=== PATIENT | female | born 1995 | race Caucasian/White ===

== ENCOUNTER 2025-06-21 18:14 | Emergency (ER) | payer MEDICARE, MEDICAID, SELFPAY ==
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
--- NOTE | 2025-06-21 18:45 | DI.RAD_ITS ---
Exam(s) XR FINGER RT RING EXAM: XR FINGER RT RING CLINICAL HISTORY: pain/limited rom. TECHNIQUE: 2D digital imaging was performed. Three views. COMPARISON: No exams were available for comparison FINDINGS: BONES: No acute fracture is present. No bony destructive lesion is seen. JOINTS: No dislocation present. SOFT TISSUE: Normal. IMPRESSION: No evidence of acute fracture, dislocation, or subluxation. The preliminary [facility] report was reviewed. DATA REPOSITORY: RADIATION DOSE DELIVERED:
[2025-06-21 18:48] VITALS: BP 112/71; PULSE 102; RESP 18; TEMP 36.7; O2SAT 99
--- NOTE | 2025-06-21 20:06 | DI.[facility]_ITS ---
PROCEDURE INFORMATION: Exam: XR Right Finger(s) Exam date and time: 06/21/2025 7:43 PM Age: 29 years old Clinical indication: Finger(s); Right; Pain, lrom TECHNIQUE: Imaging protocol: Radiologic exam of the right fingers. Views: Minimum 2 views. COMPARISON: No relevant prior studies available. FINDINGS: Bones/joints: No acute fracture or dislocation. No suspicious bony lesions. Soft tissues: Normal. No unexpected radiopaque foreign bodies. IMPRESSION: No acute findings. If pain persists, consider repeat imaging in 5-7 days to exclude occult fracture. Dictated and Authenticated by: Rossy Tobias MD. Orderin Shady Bermudez MD
== END 2025-06-21 20:41 | disposition home or self-care (01) ==
PROVIDERS: Emergency Provider Emergency Medicine; PCP Student in an Organized Health Care Education/Training Program
DX: S60.021A Contusion of right index finger without damage to nail, initial encounter (principal); M79.644 Pain in right finger(s); X58.XXXA Exposure to other specified factors, initial encounter
CPT/HCPCS: 99283 ×2; 29130; 73140

== ENCOUNTER 2025-08-20 13:33 | Outpatient (CLI) | payer MEDICARE, MEDICAID, SELFPAY ==
[2025-08-20 13:32] VITALS: BP 134/78; PULSE 101; RESP 20; TEMP 37.6; O2SAT 98
--- NOTE | 2025-08-20 13:41 | ED.GENADUL_ITS ---
Discharge Plan Disposition Patient Disposition: Admit to [facility] Condition: Serious Discharge Details Clinical Impression: Uterine contractions during Primary Care Provider: Gabriele Post ED Provider: Valeriano Daniels [facility] General Mode of arrival: EMS . Date/Time Provider Initiated Documentation: 08/20/25 13:37 . Limitations to Documentation: other (acuity of condition) . Information obtained by: patient . HPI Narrative: 29-year-old G3, P2 at 28 weeks here with active labor. Patient notes contractions every 2 to 3 minutes and thinks her water broke. Patient arrives by EMS. Related Data Allergies Allergy/AdvReac Type Severity Reaction Status Date / Time amoxicillin (From Augmentin) Allergy Intermediate Hives Verified 06/21/25 18:25 clavulanic acid (From Allergy Intermediate Hives Verified 06/21/25 18:25 Augmentin) General CRYSTAL: 4 Review of Systems Genitourinary Genitourinary: Reports as per HPI Exam Const General: cooperative and healthy appearing Nutritional Appearance: well nourished Orientation: alert and awake Resp Effort & Inspection: normal respiratory effort, able to speak in complete sentences and no respiratory distress Cardio Rate: tachycardic Medical Decision Making 29-year-old G3, P2 at 28 weeks here with contractions 2 to 3 minutes apart, thinks her water broke. Patient's last was delivered at [address] Tena on-call grinder machine setter at bedside on arrival in the emergency department. Care was expeditiously transferred to obstetrics team and patient was transported to labor and delivery. [facility] All Active Problems (Updated 08/20/25 @ 13:42 by Valeriano Daniels MD) Uterine contractions during (Acute) Social History Smoking/Tobacco Use Status: Never Smoking risk assessment performed?: Yes Alcohol Intake: never Substance use type: does not use Housing: house
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
[2025-08-20 14:38] VITALS: BP 95/54; PULSE 87; TEMP 36.5
[2025-08-22 12:17] VITALS: BP 134/78
[2025-08-22 12:22] VITALS: PULSE 101; TEMP 37.6
[2025-08-24 14:10] LABS: Chlamydia Result Negative (Negative); GC Result Negative (Negative)
== END 2025-08-20 15:06 ==
LOC: ER 13:55 → OBS 14:05 → WWC 08-24 11:39
PROVIDERS: Emergency Provider Student in an Organized Health Care Education/Training Program; PCP Student in an Organized Health Care Education/Training Program; Visit Provider Obstetrics & Gynecology
DX: O47.03 False labor before 37 completed weeks of gestation, third trimester (principal); Z3A.28 28 weeks gestation of pregnancy; Z11.3 Encounter for screening for infections with a predominantly sexual mode of transmission
CPT/HCPCS: 87491; 87591; 59025; 87081

== ENCOUNTER 2025-08-30 16:56 | Outpatient (CLI) | payer MEDICARE, MEDICAID, SELFPAY ==
[2025-08-30 16:57] VITALS: BP 137/87; PULSE 106; RESP 18; TEMP 36.5; O2SAT 97
[2025-08-30 17:38] VITALS: BP 107/63; PULSE 96; TEMP 36.6
--- NOTE | 2025-08-30 19:30 | ED.GENADUL_ITS ---
Discharge Plan Disposition Patient Disposition: Admit to [facility] Condition: Stable Discharge Details Clinical Impression: Premature rupture of membranes Admit Date/Time: 08/30/25 17:26 Admit Provider: Pura Kelly Attending Provider: Pura Kelly Primary Care Provider: Gabriele Post ED Provider: Waleska Davies General Mode of arrival: ambulatory . Date/Time Provider Initiated Documentation: 08/30/25 17:01 . Limitations to Documentation: no limitations . Information obtained by: patient and old records reviewed . HPI Narrative: This is a 30-year-old female patient presenting for evaluation of loss of fluids in . The patient is 29 weeks , G 3P2, with a history of premature rupture of membranes and . She has been following at [facility] given her high risk nature of her for that reason. Reports that she woke up this morning and had clear/mucousy fluid on her pants. She has not had any vaginal bleeding, loss of motion, or contractions, but does endorse some achiness in the lower aspect of her belly and her bilateral thighs. Related Data Home Medications Medication Instructions Recorded Confirmed vit no.95-ferrous 1 tab PO DAILY 08/30/25 fumarate 28 mg-folic acid 800 mcg tablet ( Multivitamins) Allergies Allergy/AdvReac Type Severity Reaction Status Date / Time amoxicillin (From Augmentin) Allergy Intermediate Hives Verified 08/30/25 17:01 clavulanic acid (From Allergy Intermediate Hives Verified 08/30/25 17:01 Augmentin) General Stated Complaint: PHYSICIAN COMPENSATION ANALYST CRYSTAL: 3 Exam Narrative Exam Narrative: Gen: Awake and alert, in no apparent distress HEENT: Non-icteric sclera Neck: Supple Lungs: No apparent respiratory distress, normal respiratory effort. CV: Appears well perfused, strong distal pulses Abdomen: Gravid, uterine fundus palpable just around the umbilicus, no palpable contractions, no abdominal tenderness : External visual vaginal examination reveals no bulging of perineum, no crown ing. No internal examination performed by this provider. MSK: Moves 4 extremities without apparent limitation in ROM Skin: Visualized skin without cyanosis, extensive papules Neuro: Normal Gait, no obvious focal deficits or facial asymmetry. Speaks in full, clear sentences. Psych: Appropriate for situation. Course Vital Signs Vital signs: Vital Signs Temperature 36.5 C 08/30/25 16:57 Pulse 106 H 08/30/25 16:57 Respiratory Rate 18 08/30/25 16:57 Blood Pressure 137/87 08/30/25 16:57 Pulse Oximetry 97 08/30/25 16:57 Temperature 36.5 C 08/30/25 16:57 Temperature 36.6 C 08/30/25 17:38 Temperature Source Tympanic 08/30/25 16:57 Pulse 106 H 08/30/25 16:57 Pulse 96 08/30/25 17:38 Respiratory Rate 18 08/30/25 16:57 Blood Pressure 137/87 08/30/25 16:57 Blood Pressure 107/63 08/30/25 17:38 Pulse Oximetry 97 08/30/25 16:57 Oxygen Delivery Method Room Air 08/30/25 16:57 Oxygen Flow Rate 0 08/30/25 16:57 Pain Level 0 08/30/25 16:57 Medical Decision Making This is a 30-year-old female patient presenting for evaluation of loss of fluid at 29 weeks of concerning for rupture of membranes. No vaginal bleeding to suggest placenta previa or abruption, patient is having some discomfort in her abdomen but no active contractions. She does not appear at this time to be undergoing imminent delivery. Her blood pressure is borderline but she herself has no history of preeclampsia. No loss of motion and movement is appreciated on ultrasound, making demise less likely. We reached out to the PHYSICIAN COMPENSATION ANALYST team who have graciously accepted this patient to be taken upstairs for further monitoring and management of premature rupture of membranes. While under my care the patient remained hemodynamically appropriate and left the department without incident. Waleska Davies MD [facility] All Active Problems (Updated 08/30/25 @ 19:35 by Waleska Davies MD) Premature rupture of membranes (Acute) Uterine contractions during (Acute) Social History Smoking/Tobacco Use Status: Never Smoking risk assessment performed?: Yes Alcohol Intake: never Substance use type: does not use Housing: house POCUS Exam (ED) Limited OB Exam DATE OF EXAM:: 08/30/25 TIME OF EXAM:: 17:08 PROVIDER THAT PERFORMED THE STUDY: Waleska Davies Type of Exam: Pelvic OB Trans Abdominal REASON FOR EXAM: other indication: c/f rupture of membranes VISUALIZED STRUCTURES: Poll, Gestational sac and Uterus PERTINENT FINDINGS/IMPRESSION: other impression: movement noted, exam stopped prior to heart rate measurements as OB room is ready Exam Complete.
--- NOTE | 2025-08-30 20:34 | W.PM.OBHPL1 ---
Date of service: 08/30/25 Time of Service: 20:34 Assessment and Plan Assessment and plan (1) Neurofibromatosis: Status: Acute (2) History of delivery: Status: Acute Assessment and plan: Patient is a 30-year-old 3 para 0-2-0-2 with a previous 36-week 5-day delivery, and a 33-week 5-day delivery both of which were vaginally. She is today 29 weeks and 6 days. She her is complicated by her previous deliveries, and she which she reports as an ovarian tumor. We have no record or documentation of this. She presented today with suspected rupture of membranes, however had an appropriate amniotic fluid index of 15, negative ROM plus, and a negative examination. She will be discharged to home to follow-up with her primary maternal- medicine group at the [facility]. Will also attempt to have her seen in the office to establish care and the fact that she is living locally currently. More records to follow. (3) Vaginal discharge: Status: Acute OB-HPI Labor/Delivery History of Present Illness Reason for Visit: Leakage of fluid Chief Complaint: Suspected Rupture of Membranes , Associated Signs and Symptoms of Suspected ROM: Wet underclothing. RITESH Calculator Estimated Delivery Date Method Current WG Current Estimate 11/09/25 Manual 29w 6d Comments: Patient is a 30-year-old female 3 para 0-2-0-2 who has had care at the [facility] due to high risk issues. She has had a previous vaginal at 36 weeks and 5 days and a subsequent vaginal at 33 weeks and 5 days. She presented via the emergency department again for second visit today. She is 29 weeks and 6 days. Her complaint was leakage of fluid. She stated that she was taking a nap and woke up and had fluid on her underwear. She was initially briefly seen in the emergency department, and due to the fact that she is was transitioned to the center for further evaluation. On examination, she was having no bleeding, no cramping, and no particular loss of fluid. Bedside ultrasound was performed confirming a fetus in the vertex position with an amniotic fluid index of 15. Baby was moving and active. heart rate tracing was category 1 without evidence of contractions. Sterile speculum examination performed for ROM plus which was negative. Cervical exam performed which showed a cervix that is soft, posterior, closed, thick, high. She had a previous group B strep culture from prior admission which was noted to be positive. In light of this reassuring status today, she will be discharged to home. She has an in person visit scheduled at the [facility] on 09/01/2025. She also is being evaluated by primary care. We do not have access to her records currently and will attempt to obtain these yet again. Review of Systems All systems reviewed & are unremarkable except as noted in HPI and below PFSH All Active Problems (Updated 08/30/25 @ 20:38 by Pura Kelly DO) Vaginal discharge (Acute) History of delivery (Acute) Neurofibromatosis (Acute) Uterine contractions during (Acute) Surgical History (Updated 08/30/25 @ 20:39 by Pura Kelly DO) History of foot surgery Social History Smoking/Tobacco Use Status: Never Smoking risk assessment performed?: Yes Alcohol Intake: never Substance use type: does not use Housing: house Meds Allergies and Home Medications Allergies Allergy/AdvReac Type Severity Reaction Status Date / Time amoxicillin (From Augmentin) Allergy Intermediate Hives Verified 08/30/25 17:01 clavulanic acid (From Allergy Intermediate Hives Verified 08/30/25 17:01 Augmentin) Home Medications Medication Instructions Recorded Confirmed Type vit no.95-ferrous 1 tab PO DAILY 08/30/25 08/30/25 History fumarate 28 mg-folic acid 800 mcg tablet ( Multivitamins) Exam Physical Exam Vital signs: Temp Pulse Resp BP Pulse Ox 97.7 F 106 H 18 137/87 97 08/30/25 16:57 08/30/25 16:57 08/30/25 16:57 08/30/25 16:57 08/30/25 16:57 Vital Signs Reviewed: Yes Constitutional Constitutional: no acute distress and obese Detailed Labor and Delivery Exam Dilation: 0 Effacement (%): 0 station: -4 Luna Score: Cervical Points Exam 0 1 2 3 Dilation Closed 1-2cm 3-4 cm 5-6cm Effacement 0-30% 40-50% 60-70% 80% Consistency Firm Medium Soft Station -3 -2 -1,0 +1,+2 Position Posterior Mid Anterior Amniotic Membrane Status: Intact Fetus A Heart Rate Baseline: 140 Monitor Accelerations: Present Monitor Decelerations: None HEENT Exam HEENT Exam: Normal Neck Exam Neck Exam: Normal Respiratory Exam Respiratory Exam: Normal Cardiovascular Exam Cardiovascular Exam: Normal Abdominal Exam Abdominal Exam: Normal Skin Exam Skin Exam: Abnormal Detailed Skin Exam Comments: Patient has numerous lesions of neurofibromatosis throughout her entire dermis, too numerous to delineate or quality. Results Results Group Beta Strep: Positive (08/20/2025) Risk Assessment Risks Reviewed Risks Reviewed Upon Admission: Yes
--- NOTE | 2025-08-30 20:42 | W.PM.OBDISCH ---
Date of service: 08/30/25 Time of Service: 20:42 DS: Diagnosis Discharge Diagnosis (1) Neurofibromatosis: Status: Acute Asessment and Plan: Chronic (2) History of delivery: Status: Acute Asessment and Plan: History of 36 and 33-week delivery (3) Vaginal discharge: Status: Acute Asessment and Plan: Suspect urinary leakage. No evidence of loss of amniotic fluid. ROM plus negative. SHADIA 15 Discharge Plan Disposition Patient Disposition: Home Condition: Good Discharge Details Reason For Visit: Leakage of fluid Admit Date/Time: 08/30/25 17:26 Admit Provider: Pura Kelly Attending Provider: Pura Kelly Primary Care Provider: Gabriele Post Hospital Course Hospital Course: The patient was admitted via the emergency department for suspected rupture of membranes at 29 weeks and 6 days. She was taken to the OB area for evaluation and bedside ultrasound performed, POCUS confirming viable , active, SHADIA equals 15, vertex. ROM plus was negative. Patient discharged to home to be followed at her scheduled visit at the [facility] on 09/02/2025. She also has establishment of primary care provider. We will coordinate visits with our facility as well to assist in long-term Meds and New Rx's Prescriptions: No Action PNV no.95-ferrous fumarate-FA [ Multivitamins] 28 mg iron- 800 mcg tablet 1 tab PO DAILY Discharge Instructions Activity:: Activity as Tolerated Equipment/Supplies:: No Equipment Needed Diet:: As Tolerated Discharge Orders Discharge Orders: Discharge Order (Routine); Ordered 08/30/25 Ordered By: Pura Kelly Discharge Data Discharge Date/Time-TO BE ENTERED AT DEPARTURE: 08/30/25 18:45 OB:DS Summary Contraception Discussed Contraception Discussed: No, Status at Discharge Functional status at discharge: independent ambulation Overall status at discharge: patient is back to baseline Mental Status: mental status grossly normal Speech and Movement: speech and movement normal Mood: congruent mood Affect: normal affect Exam Physical Exam Vital signs: Temp Pulse Resp BP Pulse Ox 97.7 F 106 H 18 137/87 97 08/30/25 16:57 08/30/25 16:57 08/30/25 16:57 08/30/25 16:57 08/30/25 16:57 PFSH All Active Problems (Updated 08/30/25 @ 20:38 by Pura Robin, DO) Vaginal discharge (Acute) History of delivery (Acute) Neurofibromatosis (Acute) Uterine contractions during (Acute) Surgical History (Updated 08/30/25 @ 20:39 by Pura Kelly DO) History of foot surgery Social History Smoking/Tobacco Use Status: Never Smoking risk assessment performed?: Yes Alcohol Intake: never Substance use type: does not use Housing: house DS: Data Vitals/I&O Vitals and I&O: Vital Signs Temperature 97.7 F 08/30/25 16:57 Temperature 97.9 F 08/30/25 17:38 Temperature Source Tympanic 08/30/25 16:57 Pulse 106 H 08/30/25 16:57 Pulse 96 08/30/25 17:38 Respiratory Rate 18 08/30/25 16:57 Blood Pressure 137/87 08/30/25 16:57 Blood Pressure 107/63 08/30/25 17:38 Pulse Oximetry 97 08/30/25 16:57 Oxygen Delivery Method Room Air 08/30/25 16:57 Oxygen Flow Rate 0 08/30/25 16:57 Pain Level 0 08/30/25 16:57 Intake & Output 08/29/25 08/30/25 08/30/25 23:59 11:59 23:59 Weight 260 lb Data Completed and Pending Labs on day of discharge: Labs from last 24 hours 08/30/25 17:30 Membranes Rupture Negative
== END 2025-08-30 17:22 | disposition short-term general hospital (02) ==
LOC: BCD 09-09 12:15 → OBS 09-09 12:15
PROVIDERS: PCP Student in an Organized Health Care Education/Training Program; Visit Provider Obstetrics & Gynecology
DX: O47.03 False labor before 37 completed weeks of gestation, third trimester (principal); N89.8 Other specified noninflammatory disorders of vagina; Z3A.29 29 weeks gestation of pregnancy; Z87.51 Personal history of pre-term labor
CPT/HCPCS: 76815; 84112; 59025; G0378